=== PATIENT | male | born 1940 | race Asian ===

== ENCOUNTER 2018-03-18 06:17 | Day surgery (SDC) | payer OTHER ==
[~2018-03-18] VITALS: Ht 165.1 cm; Wt 87.3 kg
[~2018-03-18 06:17] MED LIST: CEPH500 PO; METO50TA18 PO; SODIUM CHLORIDE 0.9% 1,000 ML IV ONE; VALS160T2 PO; WARF-57 PO
[2018-03-18] MEDS ORDERED: BENZOCAINE 20% 50 MCG/SPRAY 57 GM TP ONE (06:18)
[2018-03-18] MEDS ORDERED: LIDOCAINE HCL 4% 50 ML SOLUTION TP ONE (06:18)
[2018-03-18] MEDS ORDERED: LIDOCAINE HCL 2% 30 ML JELLY TP ONE (06:18)
[2018-03-18] MEDS ORDERED: ALBUTEROL SULFATE 2.5 MG/0.5 ML NEB SOLUTION NEB ONE (06:18)
[2018-03-18 07:33] LABS: GLUCOMETER DEV NAME(LOC) SDS 5; GLUCOSE,POINT OF CARE 94 MG/DL (70-110)
[2018-03-18] MEDS ORDERED: MIDAZOLAM HCL 2 MG/2 ML VIAL ONE (08:02)
[2018-03-18] MEDS ORDERED: FentaNYL CITRATE-PF 100 MCG/2 ML VIAL ONE (08:02)
[2018-03-18] MEDS ORDERED: FURO20 PO (08:28)
[2018-03-18] MEDS ORDERED: CYAN500 PO (08:28)
[2018-03-18] MEDS ORDERED: NITR0.4T50 SL (08:28)
[2018-03-18] MEDS ORDERED: ALBU90AE IH (08:28)
[2018-03-18] MEDS ORDERED: CARV12 PO (08:28)
[2018-03-18] MEDS ORDERED: TIOT4MIS2 IH (08:28)
[2018-03-18] MEDS ORDERED: ATOR20TA86 PO (08:28)
[2018-03-18] MEDS ORDERED: FLUT16H NASAL (08:28)
[2018-03-18] MEDS ORDERED: CLOP75 PO (08:28)
[2018-03-18] MEDS ORDERED: RIVA15T PO (08:28)
[2018-03-18] MEDS ORDERED: EMPA25TA PO (08:28)
[2018-03-18] MEDS ORDERED: ASPI-1182 PO (08:28)
[2018-03-18] MEDS ORDERED: MONT10TA21 PO (08:28)
[2018-03-18] MEDS ORDERED: FAMO20 PO (08:28)
[2018-03-18] MEDS ORDERED: MethylPREDNISolone SOD SUCC 125 MG/2 ML VIAL IVP ONE (09:15)
[2018-03-18] MEDS ORDERED: MethylPREDNISolone SOD SUCC 125 MG/2 ML VIAL ONE (09:40)
[2018-03-18] MEDS ORDERED: OXYGEN THERAPY IH SCH (20:00)
== END 2018-03-18 11:20 | disposition home or self-care (01) ==
LOC: SURGERY 06:17
PROVIDERS: ATTEND Internal Medicine Critical Care Medicine
DX: J38.4 Edema of larynx (principal); B37.0 Candidal stomatitis; J39.8 Other specified diseases of upper respiratory tract; J44.9 Chronic obstructive pulmonary disease, unspecified; K21.9 Gastro-esophageal reflux disease without esophagitis; I50.9 Heart failure, unspecified; I11.0 Hypertensive heart disease with heart failure; E11.9 Type 2 diabetes mellitus without complications; I48.91 Unspecified atrial fibrillation; I25.9 Chronic ischemic heart disease, unspecified; Z87.891 Personal history of nicotine dependence; Z95.5 Presence of coronary angioplasty implant and graft; Z95.0 Presence of cardiac pacemaker; Z98.890 Other specified postprocedural states; Z79.82 Long term (current) use of aspirin; Z79.899 Other long term (current) drug therapy
CPT/HCPCS: 31623; 31624; 71045; 82962; 87015; 87070; 87205; 87206; 87220; 88108; 88184; 88185; 88312; 93005; J2250; J2930; J3010; J7030; 87101